=== PATIENT | female | born 1965 | race Caucasian/White ===

== ENCOUNTER 2022-08-11 08:39 | Outpatient (CLI) | payer BC, SELFPAY ==
--- NOTE | ~2022-08-11 | XR_ITS ---
EXAMINATION: XR UGIAC w barium swallow DATE: 08/11/2022 09:20 INDICATION: Dysphagia. TECHNIQUE: The patient drank thick barium, gas-producing crystals, and thin barium. Fluoroscopy of th e esophagus, stomach, and proximal small bowel was performed. Fluoroscopy exposure time was 0.4 minut es. The total number of images was 206. Total dose-area product was 1.105 Gy-cm^2. COMPARISON: None. FINDINGS: There is no mass or stricture of the esophagus. Esophageal motility is normal. There is no hiatal hernia. There was no gastroesophageal reflux with provocative maneuvers. The stomach and proxi mal small bowel show normal folding patterns. IMPRESSION: 1. Normal upper gastrointestinal series. Reviewed, dictated and finalized at location A.
[2022-08-11 10:30] LABS: Basophils Absolute Auto 0.1 K/mm3 (0.0-0.1); Basophils Percent Auto 1.3 % (0.2-1.2); Eosinophils Absolute Auto 0.1 K/mm3 (0-0.3); Hematocrit 42.1 % (37.0-47.0); Hemoglobin 14.1 g/dL (12.0-15.0); Immature Granulocyte Absolute 0.02 K/mm3 (0.00-0.031); Immature Granulocyte Percent A 0.3 % (0-0.5); Lymphocytes Absolute Auto 1.73 K/mm3 (0.9-3.2); Lymphocytes Percent Auto 27.8 % (18.3-44.2); Mean Corpuscular HGB Conc 33.5 g/dl (32-36); Mean Corpuscular Hemoglobin 28.3 pg (26-34); Mean Corpuscular Volume 84.4 fl (80-100); Mean Platelet Volume 10.2 fl (7.4-10.4); Monocytes Absolute Auto 0.4 K/mm3 (0.1-0.6); Monocytes Percent Auto 5.6 % (2.6-8.5); Platelet Count Result 263 k/mm3 (150-375); Red Blood Count 4.99 M/mm3 (4.2-5.4); Red Cell Distribution Width 12.9 % (11.5-14.5); White Blood Count 6.2 K/mm3 (4.5-10.0)
[2022-08-11 10:50] LABS: Alanine Aminotransferase 37 U/L (6-35); Albumin Level 4.6 g/dL (3.5-5.1); Alkaline Phosphatase 95 U/L (38-126); Anion Gap 4 mmol/L (8-16); Aspartate Amino Transferase 35 U/L (14-36); Bilirubin,Total 0.5 mg/dL (0.2-1.3); Blood Urea Nitrogen 15 mg/dL (7-17); CRP 0.9 mg/dL (<1.0); Calcium 9.7 mg/dL (8.4-10.2); Carbon Dioxide 37 mmol/L (22-30); Chloride 99 mmol/L (98-107); Cholesterol 240 mg/dL (0-200); Estimated Glomerular Filt Rate > 60; Glucose 109 mg/dL (65-110); HDL Direct 54 mg/dL; Potassium 3.4 mmol/L (3.4-5.0); Sodium 140 mmol/L (137-145); Triglycerides 163 mg/dL (<150)
[2022-08-11 10:59] LABS: LDL Cholesterol Direct 143 mg/dL
[2022-08-11 11:03] LABS: Erythrocyte Sedimentation Rate 16 mm/hr (0-20)
[2022-08-11 11:18] LABS: Thyroid Stimulating Hormone 0.856 uIU/mL (0.465-4.680)
[2022-08-11 11:23] LABS: Rheumatoid Factor 59.2 IU/ML (<12)
[2022-08-11 11:38] LABS: Free T4 Free Thyroxine 1.04 ng/mL (0.78-2.19)
[2022-08-16 06:40] LABS: Lyme Disease Ab (IgM), Blot Negative (Negative); Lyme Disease Ab(IgG), Blot Negative (Negative)
[2022-08-16 12:23] LABS: Cyclic Citrullinated Peptide <16 Units (<20)
== END 2022-08-11 08:40 | disposition home or self-care (01) ==
PROVIDERS: PCP Family Medicine; Visit Provider Physician Assistant
DX: R13.10 Dysphagia, unspecified (principal); E78.5 Hyperlipidemia, unspecified; R53.83 Other fatigue; E55.9 Vitamin D deficiency, unspecified; I10 Essential (primary) hypertension; G89.29 Other chronic pain
CPT/HCPCS: 36415; 74246; 80053; 80061; 82306; 84439; 84443; 85025; 85652; 86038; 86140; 86430; 86617

== ENCOUNTER 2023-10-03 08:36 | Outpatient (CLI) | payer BC, SELFPAY ==
--- NOTE | ~2023-10-03 | XR_ITS ---
3 VIEWS LUMBAR SPINE Ordering provider: Angle Perez, PAC History: . M54.50 - Low back pain, unspecified . Comparison: None. FINDINGS: VERTEBRAL BODIES: No visible fracture or subluxation. DISK SPACES: Narrowing of the disc L2-L3 and L4-L5. SOFT TISSUES: Normal. IMPRESSION: No acute osseous abnormality lumbar spine. Degenerative disc disease at multiple levels. Reviewed, dictated and finalized at location A.
--- NOTE | ~2023-10-03 | XR_ITS ---
XR hand LT 2V Ordering provider: NONSTAFF PHYSICIAN NOT ON STAFF History: . MULTIPLE JOINT PAIN . Comparison: None. FINDINGS: BONES: No acute fracture or dislocation. JOINT SPACES: Well maintained. SOFT TISSUES: Unremarkable. IMPRESSION: No acute osseous abnormality left hand. Reviewed, dictated and finalized at location A.
--- NOTE | ~2023-10-03 | XR_ITS ---
XR sacroiliac joints min 3V Ordering provider: NONSTAFF PHYSICIAN NOT ON STAFF History: . MULTIPLE JOINT PAIN . Comparison: None. FINDINGS: BONES: No acute fracture or dislocation. JOINTS: The bilateral sacroiliac joint spaces appear well maintained. No bony fusion of the sacroilia c joints or bony erosions. SOFT TISSUES: Unremarkable. Pubic symphysitis. Degenerative disc disease in the lower lumbar area. IMPRESSION: NO ACUTE OSSEOUS ABNORMALITY. NORMAL SACROILIAC JOINTS. Reviewed, dictated and finalized at location A.
--- NOTE | ~2023-10-03 | XR_ITS ---
XR shoulder RT min 2V 10/03/2023 09:12 Indication: Right shoulder pain Procedure: 4 views right shoulder Comparison: No prior studies for comparison. Findings: There is osteoarthritis of the acromioclavicular joint with small loose body superior to th e joint space. No fracture or traumatic malalignment. There is anatomic alignment. Impression: 1: Mild osteoarthritis of the right acromioclavicular joint. Reviewed, dictated and finalized at location B. Impression: 1: Mild osteoarthritis of the right acromioclavicular joint.
--- NOTE | ~2023-10-03 | XR_ITS ---
XR hand RT 2V Ordering provider: NONSTAFF PHYSICIAN NOT ON STAFF History: . MULTIPLE JOINT PAIN . Comparison: None. FINDINGS: BONES: No acute fracture or dislocation. JOINT SPACES: Normal. SOFT TISSUES: Normal. IMPRESSION: No acute osseous abnormality right hand. Reviewed, dictated and finalized at location A.
--- NOTE | ~2023-10-03 | XR_ITS ---
XR hip BI wo pelvis Ordering provider: NONSTAFF PHYSICIAN NOT ON STAFF History: . MULTIPLE JOINT PAIN . Comparison: None. FINDINGS: BONES: No acute fracture or dislocation. HIP JOINT SPACES: Normal. SACROILIAC JOINT SPACES: The sacroiliac joint spaces are normal. spine. PUBIC SYMPHYSIS: Normal. SOFT TISSUES: Normal. IMPRESSION: No acute osseous abnormality of the bilateral hips and pelvis. Reviewed, dictated and finalized at location A.
== END 2023-10-03 08:37 | disposition home or self-care (01) ==
PROVIDERS: PCP Family Medicine; Visit Provider Physician Assistant
DX: M25.511 Pain in right shoulder (principal); M54.50 Low back pain, unspecified; M25.50 Pain in unspecified joint; M51.36 Other intervertebral disc degeneration, lumbar region; M16.11 Unilateral primary osteoarthritis, right hip
CPT/HCPCS: 72110; 72202; 73030; 73120; 73521

== ENCOUNTER 2023-10-07 08:09 | Outpatient (CLI) | payer BC, SELFPAY ==
--- NOTE | ~2023-10-07 | US_ITS ---
EXAMINATION: US right upper quadrant DATE: 10/07/2023 08:54 INDICATION: Unspecified abdominal pain. TECHNIQUE: Multiple grayscale and Doppler ultrasound images of the abdomen were obtained. COMPARISON: None FINDINGS: The visualized portions of the head, body, and tail of the pancreas are normal. The liver i s normal without focal lesion. No liver surface nodularity. There is normal flow in main portal vein. The gallbladder is normal in size. No gallstones or gallbladder wall thickening. There is no sonogra phic Hernandez's sign. The common duct is normal and measures 6 mm. IMPRESSION: 1. Normal right upper quadrant ultrasound. Reviewed, dictated and finalized at location A.
== END 2023-10-07 08:10 ==
LOC: MICIMG 08:10
PROVIDERS: PCP Family Medicine; Visit Provider Physician Assistant
DX: R10.9 Unspecified abdominal pain (principal)
CPT/HCPCS: 76705

== ENCOUNTER 2023-12-14 00:48 | Day surgery (SDC) | payer BC, SELFPAY ==
[2023-11-30 10:33] VITALS: BMI 32.0
[2023-12-14 07:21] VITALS: BP 120/86; PULSE 96; RESP 18; TEMP 36.3; O2SAT 100; BMI 32.5
--- NOTE | 2023-12-14 07:29 | WPDANESEPPF ---
Anes - Initial Pre Proc Eval Procedure: Operation Date: 12/14/23 08:30 Proposed Procedures p Esophagogastroduodenoscopy & Colonoscopy - Jose Miguel Pat MD Date/Time: 12/14/23 07:29 Surgeon: Jose Miguel Pat MD Pre Op Diagnosis: Dysphagia, Personal hx. colon polyps Patient Data Age: 58 Gender: F Height: 1.65 m Weight: 88.9 kg Last Vital Signs Temp 36.3 C L 12/14/23 07:21 Pulse 96 12/14/23 07:21 Resp 18 12/14/23 07:21 BP 120/86 12/14/23 07:21 Pulse Ox 100 12/14/23 07:21 O2 Del Method Room Air 12/14/23 07:21 Allergies Allergy/AdvReac Type Severity Reaction Status Date / Time NKDA Allergy Mild Other Uncoded 12/14/23 07:16 Home Medications Medication Instructions Recorded Confirmed Type fluorometholone 0.1 % eye 1 drp LEFT EYE ONCE PRN eye 07/22/22 12/14/23 History drops,suspension swelling Saccharomyces boulardii 250 mg 250 mg PO DAILY #30 caps 07/26/22 12/14/23 Rx capsule (Daily Probiotic (S. boulardii)) apple cider vinegar 300 mg tablet 300 mg PO DAILY #30 tabs 07/26/22 12/14/23 Rx aspirin 81 mg tablet,delayed 81 mg PO DAILY #30 tabs 07/26/22 12/14/23 Rx release cinnamon bark 500 mg capsule 500 mg PO DAILY #30 caps 07/26/22 12/14/23 Rx (Cinnamon) fexofenadine 180 mg tablet 180 mg PO DAILY #30 tabs 07/26/22 12/14/23 Rx garlic 100 mg tablet 100 mg PO DAILY #30 tabs 07/26/22 12/14/23 Rx dayana (Zingiber officinalis) 500 500 mg PO DAILY #30 caps 07/26/22 12/14/23 Rx mg capsule multivitamin, stress formula 1 tablet PO .twice daily #60 tabs 07/26/22 12/14/23 Rx (Stress Formula tablet) omega-3 417 mg-dha 120 mg-epa-276 1 cap PO .twice daily #60 caps 07/26/22 12/14/23 Rx mg-fish oil 600 mg-turmeric capsule vitamin D3 250 mcg (10,000 1 cap PO DAILY #30 caps 07/26/22 12/14/23 Rx unit)-vitamin K2 45 mcg capsule albuterol sulfate 90 mcg/actuation 1 inh inhalation Q4H PRN shortness 12/27/22 12/14/23 Rx aerosol inhaler of breath or wheezing #6.7 grams JESSICA 100 mg-theanine 100 1 cap PO DAILY #30 caps 09/05/23 12/14/23 Rx mg-ashwagandha extract 225 mg capsule (JESSICA Soothe) glucosamine sulfate 500 mg tablet 500 mg PO DAILY 09/05/23 12/14/23 History (Glucosamine) turmeric root extract 500 mg 500 mg PO BID 09/29/23 12/14/23 History capsule chlorthalidone 25 mg tablet See Rx Instructions .Route 10/02/23 12/14/23 Rx .COMPLEX #90 tabs clonazepam 0.5 mg tablet 0.5 mg PO BID PRN Anxiety 11/30/23 12/14/23 History Patient hx anesthesia problems: none Family hx anesthesia problems: none Results Review: All pre-operative results and documents have been reviewed as part of the pre-operative evaluation. [facility] Past Medical History Medical History Anxiety Asthma Chronic pain History of breast cancer Hypertension Obesity Other fatigue Surgical History Surgical History History of D&C 01/02/2015 History of lumpectomy of right breast 05/2010 History of total abdominal hysterectomy and bilateral salpingo-oophorectomy 12/23/2016 Social History Social History Smoking status: Never smoker Alcohol intake: never Substance use: never Substance use type: does not use Do You Feel Safe in your Home?: Yes Lack of Transportation: No Lack of Food: Never True Current Housing: I Have Housing Concerned About Future Housing: No Difficulty Paying Gas/Electric Bills: No Difficulty Paying for Meds: No Currently Unemployed: No Education: High School Diploma/GED Difficulty w/ Childcare or Family Care: No Living arrangements: alone Occupation/Education: occupation Gender identity (if verbalized by the patient): Female Sexual Orientation (if Verbalized by the Patient): Straight or Heterosexual Spiritual care concerns: No Kaiden Cristobal
[2023-12-14] MEDS: LACTATED RINGERS 1,000 ML 150 ML IV CONT (07:31)
--- NOTE | 2023-12-14 08:20 | PM.HPGS ---
History of Present Illness History of Present Illness Consent: Risks, benefits, and alternatives have been discussed and questions answered. Patient agrees to proceed with procedure. Chief complaint: Dysphagia, Personal hx. colon polyps Narrative: Terry Chang is a 58 year old female with dysphagia- h/o esophageal ring dilated in the past, had colon polyp in 2017 Review of Systems Review of Systems: All systems reviewed & are unremarkable except as noted in HPI and below PMFSH Past Medical History Medical History Anxiety Asthma Chronic pain History of breast cancer Hypertension Obesity Other fatigue Surgical History Surgical History History of D&C 01/02/2015 History of lumpectomy of right breast 05/2010 History of total abdominal hysterectomy and bilateral salpingo-oophorectomy 12/23/2016 Social History Social History Smoking status: Never smoker Alcohol intake: never Substance use: never Substance use type: does not use Do You Feel Safe in your Home?: Yes Lack of Transportation: No Lack of Food: Never True Current Housing: I Have Housing Concerned About Future Housing: No Difficulty Paying Gas/Electric Bills: No Difficulty Paying for Meds: No Currently Unemployed: No Education: High School Diploma/GED Difficulty w/ Childcare or Family Care: No Living arrangements: alone Occupation/Education: occupation Gender identity (if verbalized by the patient): Female Sexual Orientation (if Verbalized by the Patient): Straight or Heterosexual Spiritual care concerns: No Meds Home Medications and Allergies Home Medications Medication Instructions Recorded Confirmed Type fluorometholone 0.1 % eye 1 drp LEFT EYE ONCE PRN eye 07/22/22 12/14/23 History drops,suspension swelling Saccharomyces boulardii 250 mg 250 mg PO DAILY #30 caps 07/26/22 12/14/23 Rx capsule (Daily Probiotic (S. boulardii)) apple cider vinegar 300 mg tablet 300 mg PO DAILY #30 tabs 07/26/22 12/14/23 Rx aspirin 81 mg tablet,delayed 81 mg PO DAILY #30 tabs 07/26/22 12/14/23 Rx release cinnamon bark 500 mg capsule 500 mg PO DAILY #30 caps 07/26/22 12/14/23 Rx (Cinnamon) fexofenadine 180 mg tablet 180 mg PO DAILY #30 tabs 07/26/22 12/14/23 Rx garlic 100 mg tablet 100 mg PO DAILY #30 tabs 07/26/22 12/14/23 Rx dayana (Zingiber officinalis) 500 500 mg PO DAILY #30 caps 07/26/22 12/14/23 Rx mg capsule multivitamin, stress formula 1 tablet PO .twice daily #60 tabs 07/26/22 12/14/23 Rx (Stress Formula tablet) omega-3 417 mg-dha 120 mg-epa-276 1 cap PO .twice daily #60 caps 07/26/22 12/14/23 Rx mg-fish oil 600 mg-turmeric capsule vitamin D3 250 mcg (10,000 1 cap PO DAILY #30 caps 07/26/22 12/14/23 Rx unit)-vitamin K2 45 mcg capsule albuterol sulfate 90 mcg/actuation 1 inh inhalation Q4H PRN shortness 12/27/22 12/14/23 Rx aerosol inhaler of breath or wheezing #6.7 grams JESSICA 100 mg-theanine 100 1 cap PO DAILY #30 caps 09/05/23 12/14/23 Rx mg-ashwagandha extract 225 mg capsule (JESSICA Soothe) glucosamine sulfate 500 mg tablet 500 mg PO DAILY 09/05/23 12/14/23 History (Glucosamine) turmeric root extract 500 mg 500 mg PO BID 09/29/23 12/14/23 History capsule chlorthalidone 25 mg tablet See Rx Instructions .Route 10/02/23 12/14/23 Rx .COMPLEX #90 tabs clonazepam 0.5 mg tablet 0.5 mg PO BID PRN Anxiety 11/30/23 12/14/23 History Allergies Allergy/AdvReac Type Severity Reaction Status Date / Time NKDA Allergy Mild Other Uncoded 12/14/23 07:16 Vital Signs Vital Signs - 24 hr 12/14/23 07:21 Temperature 97.3 F L Pulse Rate 96 Respiratory Rate 18 Blood Pressure 120/86 Pulse Oximetry 100 Oxygen Delivery Room Air Exam Const: General: comfortable and no acute distress HENMT: Face/Nose/Sinus:
--- NOTE | 2023-12-14 08:44 | SUR.OPER ---
egd ended at 836, colonoscopy begun at 841
[2023-12-14 08:57] VITALS: BP 101/71; PULSE 86; RESP 18; O2SAT 100
[2023-12-14 09:07] VITALS: BP 116/65; PULSE 83; RESP 18; O2SAT 100
[2023-12-14 09:17] VITALS: BP 148/81; PULSE 79; RESP 22; O2SAT 99
== END 2023-12-14 09:38 | disposition home or self-care (01) ==
PROVIDERS: PCP Family Medicine; Referring Provider Nurse Practitioner; Visit Provider Internal Medicine Gastroenterology
PROC: 0DJ08ZZ Inspection of Upper Intestinal Tract, Via Natural or Artificial Opening Endoscopic (ICD-10-PCS; CPT 43235; principal; 2023-12-14 08:30)
DX: Z12.11 Encounter for screening for malignant neoplasm of colon (principal); K63.5 Polyp of colon; K22.2 Esophageal obstruction; K21.00 Gastro-esophageal reflux disease with esophagitis, without bleeding; K44.9 Diaphragmatic hernia without obstruction or gangrene; I10 Essential (primary) hypertension; J45.909 Unspecified asthma, uncomplicated; Z85.3 Personal history of malignant neoplasm of breast; E66.9 Obesity, unspecified; Z68.32 Body mass index [BMI] 32.0-32.9, adult; Z79.82 Long term (current) use of aspirin; Z79.51 Long term (current) use of inhaled steroids
CPT/HCPCS: 45380; 43249; 88305; C1726; J2003; J2704; J7120

== ENCOUNTER 2024-03-26 09:30 | Outpatient (CLI) | payer BC, SELFPAY ==
--- NOTE | ~2024-03-26 | MR_ITS ---
EXAMINATION: MR hip LT wo con DATE: 03/26/2024 10:28 INDICATION: Left hip pain TECHNIQUE: Magnetic resonance imaging (MRI) of the left hip was performed without intravenous contra st. Sequences included full-field axial PD-weighted FS FSE and T1-weighted FSE, coronal of the pelvis with PD-weighted FS FSE, small field of view of the left hip with axial PD-weighted FS FSE, sagitta l PD-weighted FS FSE and coronal PD weighted FS FSE. Additional radial T1-weighted FGR oriented ortho gonal to the acetabular rim were obtained for evaluation of the labrum. COMPARISON: None FINDINGS: Bones/labrum/cartilage: Mild lumbar dextrocurvature with moderate spondylosis. Alignment is otherwise normal. No fracture, a vascular necrosis or pathologic marrow replacing process. Mild left hip osteoarthritis with mild part ial-thickness cartilage loss with smooth chondral surface at the posterior aspect the joint space. Li indu degeneration of the anterosuperior left acetabular labrum which appears small with amorphous inc reased signal. Fluid: Symmetric physiologic amount of fluid within both hip joints. Soft tissues: Normal and symmetric muscle bulk and signal in the pelvis and visualized proximal thighs. There is bi lateral mild diffuse medius and trochanteric bursitis. Mild tendinopathy without discrete tear at the bilateral gluteus medias and minimus tendons. The iliopsoas and proximal hamstring tendons are juan l. The uterus is not identified and has likely been surgically resected. Limited evaluation of vis ceral organs of the pelvis is otherwise unremarkable. No pathologically enlarged pelvic/inguinal lym phadenopathy. IMPRESSION: 1. Mild left hip osteoarthritis with degeneration of the anterosuperior left acetabular labrum. 2. Relatively symmetric mild bilateral trochanteric and gluteus medius medius bursitis and mild tendi nopathy without tear of the bilateral gluteus medius medius and minimus tendons. 2. Mild lumbar dextrocurvature with moderate spondylosis. Reviewed, dictated and finalized at location A. [employer] ATTEND[employer] IMPRESSION: 1. Mild left hip osteoarthritis with degeneration of the anterosuperior left ac etabular labrum. 2. Relatively symmetric mild bilateral trochanteric and gluteus medius medius b ursitis and mild tendinopathy without tear of the bilateral gluteus medius medi us and minimus tendons. 2. Mild lumbar dextrocurvature with moderate spondylosis.
--- OUTSIDE RECORDS SUMMARY | 2024-03-26 10:01 | XMS_ITS | Patient Health Record ---
Author Organization [facility] Address [address] [place] [address] Care Team Providers Care Pasteurizing Machine Operator Name Role Phone Santiago Bell MD Primary Care Provider Unavailab Jason Cota Unavailable [phone] Rohan Hui MD Unavailable Unavailable Reason For Referral No Information Medications Medication SIG (Take, Route, Frequency, Duration) Notes Start Date End Date Status Glucosamine Active Garlic Active Multivitamin Active ProAir HFA Active Fluorometholone Not- Taking oxyCODONE-Acetaminophen Not-Taking oxyCODONE HCl Not-Ta destini Tamoxifen Citrate No t-Taking tylenol Active Madelin Active Milk Thistle Active Social History Tobacco Use: Social History Observation Description Date Details (start date - stop date) Never Smoker NA - NA Tobacco Use/Smoking Question Answer Notes Are you a nonsmoker Problems Problem Type SNOMED Code ICD Code Onset Dates Problem Status W/U Status Risk Notes Problem 10116540 Benign neoplasm of ascending colon (D12.2) Active confirmed Problem 444919176 Reflux esophagitis (K21.0) Active confirmed Problem 977474056 Colon cancer screening (Z12.11) Active confirmed Problem 414790957 Schatzki's ring (K22.2) Active confirmed Problem 66136209 Esophageal dysphagia (R13.10) Active confirmed Problem 669476636 Reflux esophagitis (K21.00) Active confirmed Plan Of Treatment No Information Insurance Providers Payer Name Payer Address Payer Phone Subscriber Number Group Number Insured Name Patient Relationship to Insured Coverage Start Date Coverage End Date Blue Access PPO [id number] [address] [place] [address] [id number] Terry Chang Self - patient is the insured Medical (General) History Medical History History ICD Code Right Breast CA 2010 Asthma Surgical History Surgery Date(Month/Year) Right particial masectomy 2010 Hysterectomy 11/2016
--- OUTSIDE RECORDS SUMMARY | 2024-03-26 10:01 | XMS_ITS | Clinical Summary ---
Author Organization [facility] Address [address] [place] [address] Phone Care Team Providers Care Pipe Maker Name Role Phone Santiago Bell MD Primary Care Provider Allergies No known active allergies Medications MULTIVITAMINS WITH FLUORIDE (MULTI-VITAMIN ORAL) Active Nutritional Supplements Oral Misc Take by mouth. Activ e CALCIUM CARB/VIT D3/MINERALS (CALCIUM-VITAMI N D ORAL) Take by mouth. Activ e PROAIR HFA 90 mcg/actuation inhaler 5 Active FEXOFENADINE HCL (MIRIAM ORAL) Take by mouth. Activ e aspirin (ECOTRIN EC) 81 mg Tablet, Delayed Release (E.C.) Take 81 mg by mouth daily. Active OTHERIndication s:Tummeric Tummeric . Active clonazePAM (KlonoPIN) 0.5 mg Tablet TAKE ONE-HALF TABLET BY MOUTH TWO TIMES A DAY 0 7 Active fluorometholone (FML) 0.1 % suspension INSTILL 1 DROP INTO LEFT EYE 3 TIMES A DAY 3 7 Active GLUCOSAMINE HCL (GLUCOSAMINE, BULK, MISC) by Misc.(Non-Drug; Combo Route) route. Active OTHER Tart da silva juice for inflammation . Active OTHERIndication s:Cinnamon 2 times daily Provider please include Medication name, dose, route and frequency . Active MILK THISTLE ORAL Take by mouth. Activ e chlorthalidone (HYGROTON) 25 mg tablet Take 25 mg by mouth daily. 2 Active Active Problems Problem Noted Date Diagnosed Date Complex atypical endometrial hyperplasia 017 Uterine hemorrhage 12/23/2016 Acute blood loss anemia 12/23/2016 Anxiety state 12/23/2016 01/02/15 Hysteroscopy, Polypectomy w/ Myosure, D& C 01/02/2015 Encounters Date Type Department Care Team Description 03/20/2024 External Device Data [facility] Provider, Abstract 03/20/2024 External Device Data [facility] Provider, Abstract 03/05/2024 External Device Data [facility] Provider, Abstract 12/27/2023 External Device Data [facility] Provider, Abstract from Last 3 Months Family History Medical History Relation Name Comments Hypertension Father Colon Cancer Maternal Aunt great aunt Heart Disease Maternal Grandmother Breast Cancer Mother Hypertension Mother Kidney Disease Mother Lymphoma Mother Breast Cancer Paternal Aunt great aunt Cancer Paternal Grandfather Relation Name Status Comments Father Maternal Aunt great aunt Alive Maternal Grandmother Mother Paternal Aunt great aunt Alive Paternal Grandfather Social History Tobacco Use Types Packs/Day Years Used Date Smoking Tobacco: Never Smokeless Tobacco: Never Tobacco Cessation:Counseling Given: Not Answered Alcohol Use Standard Drinks/Week Comments No 0 (1 standard drink = 0.6 oz pur e alcohol) Comments No Sex and Gender Information Value Date Recorded Sex Assigned at Not on file Legal Sex 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 Gender Identity Not on file Sexual Orientation Not on file 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 Not on file Not on file Last Filed Vital Signs Vital Sign Reading Time Taken Comments Blood Pressure 110/72 11/07/2023 10:40 AM CDT Pulse 99 12/24/2016 7:09 AM CDT Temperature 36.4 ??C (97.6 ??F) 12/24/2016 7:09 AM CD T Respiratory Rate 20 12/24/2016 7:09 AM CDT Oxygen Saturation 99% 12/24/2016 7:09 AM CDT Inhaled Oxygen Concentration - - Weight 91.2 kg (201 lb) 11/07/2023 10:40 AM CDT Height 162.6 cm (5' 4 ) 11/07/2023 10:40 AM CDT Body Mass Index 34.5 11/07/2023 10:40 AM CDT Plan of Treatment Health Maintenance Due Date Last Done Comments Pre-Diabetes and Diabetes Screening 1965 DTAP/TDAP/TD VACCINES (1 - Tdap) 07/19/1982 FIT-DNA Q 3 years 07/19/2008 FIT/FOBT Q 1 year 07/19/2008 Flex Sig/CT Colonography Q 5 years 07/19/2008 ZOSTER VACCINE (1 of 2) 07/19/2013 INFLUENZA VACCINE (#1) 2023 BREAST CANCER SCREENING 08/09/2024 08/10/19 24, 08/09/2023, 04/29/2021, Additional history exists COLORECTAL SCREENING 12/28/2026 12/28/2016 (Previously completed) Colorectal Cancer Screening 12/28/2026 RSV VACCINE (60+ or ) (1 - 1-dose 75+ series) 07/19/2038 HEPATITIS B VACCINES Aged Out No long er eligible based on patient's age to complete this topic PNEUMOCOCCAL VACCINE 0-64 YEARS Aged Out No longer eligible based on patient's age to complete this topic Procedures Procedure Name Priority Date/Time Associated Diagnosis Comments MAMMO SCREENING BILAT Routine 08/10/2023 2:30 PM CDT from Last 3 Months or Most Recently Relevant to Health Maintenance Results * MAMMO SCREENING BILAT (08/10/2023 2:30 PM CDT) Anatomical Region Laterality Modality Breast Bilateral Other Rohan Crain MD MAMMO ORDERABLES Final Result from Last 3 Months or Most Recently Relevant to Health Maintenance Insurance [phone] (Work) [address] [place], [place] [id number] [place] [address] BLUE ACCESS/TRUE BLUE PPO [phone] (Work) [address] [place] [address] RX [facility] [employer] Advance Directives For more information, please contact: [phone] * Full Code (Latest Code Status on File) Date Activated Date Inactivated Comments 12/13/2016 9:46 AM 12/13/2016 6:17 PM * Full Code Date Activated Date Inactivated Comments 12/13/2016 5:47 AM 12/13/2016 9:45 AM * Full Code Date Activated Date Inactivated Comments 01/02/2015 8:11 AM 01/02/2015 12:12 PM * Full Code Date Activated Date Inactivated Comments 01/02/2015 7:08 AM 01/02/2015 8:11 AM * Full Code Date Activated Date Inactivated Comments 01/02/2015 6:16 AM 01/02/2015 7:08 AM Care Teams Pipe Maker Relationship Specialty Start Date End Date Santiago Bell MD [address] [place] [address] PCP - General Family Practice 06/14/16
--- OUTSIDE RECORDS SUMMARY | 2024-03-26 10:01 | XMS_ITS | Continuity of Care Document ---
Author Organization [facility] Address [address] [place] [address] Phone Care Team Providers Care Weave Defect Charting Clerk Name Role Phone Unavailable Unavailable Unavailable Advance Directives Directive Yes / No Effective Date File Name No Information Encounters Encounter Description Practice Location Reason(s) For Visit Diagnoses Date Provider Providers Copied on Encounter [facility], [address] [facility] [place], [place], [id number], tel:[phone] [facility] No Information 7 No Information Referring Provider: ANDREINA Waterman, [address] [facility] [address], [place], [address]. tel:[phone] Family History Family Member Type Diagnosis Age At Onset No Information Payers Payer name Insurance type Covered constitution party ID Authoralfred yañez(s) [facility] PPO [id number] Social History Type Description Quantity Date Captured Comments Sex Female Smoking Status No Information Chief Complaint And Reason For Visit No Information History Of Present Illness Encounter Date Complaint History Of Prese nt Illness No Information Instructions Date Instruction Additional Infor mation No Information Assessments Type Assessment Date No Information
--- OUTSIDE RECORDS SUMMARY | 2024-03-26 10:01 | XMS_ITS | Clinical Summary ---
Author Organization [facility] Address [address] [address] Phone Care Team Providers Care Placer Miner Name Role Phone Angle Perez Primary Care Provider [phone] Social History Tobacco Use Types Packs/Day Years Used Date Smoking Tobacco: Never Assessed Comments Unknown Sex and Gender Information Value Date Recorded Sex Assigned at Not on file Legal Sex Female 10:33 PM CDT Gender Identity Not on file Sexual Orientation Not on file Plan of Treatment Health Maintenance Due Date Last Done Comments Hepatitis C Virus (HCV) Screening 1965 TdaP Immunization 1965 Pap Smear 07/19/1984 Cervical Cancer Screening (CCS) 07/19/1993 HPV/Cotest 07/19/1993 Colonoscopy 07/19/2008 Colorectal Cancer Screening 07/19/2008 Cologuard 07/19/2013 Immunochemical Fecal Occult Blood 07/19/2013 Mammogram 07/19/2013 Pneumococcal Immunization (5 0+ years) (1 of 1 - PCV) 07/19/2013 Zoster Immunization (1 of 2) 07/19/2013 Influenza Immunization (#1) 2023 SARS-COV-2 Immunization ( - 2023- season) 2023 Respiratory Syncytial Virus (RSV) Immunization (Adult) (1 - 1-dose 75+ series) 07/19/2038 Hepatitis B Immunization Aged Out No longer eligible based on patient's age to complete this topic Meningococcal Immunization (ACWY) Aged Out No longer eligible based on patient's age to complete this topic Pneumococcal Immunization Combined Aged Out No longer eligible based on patient's age to complete this topic Rotavirus Immunization Aged Out No lo nger eligible based on patient's age to complete this topic Insurance [facility] Care Teams Placer Miner Relationship Specialty Start Date End Date Angle Perez PA [address] [place] [address] PCP - General Physician Shipping Weigher 09/26/16
== END 2024-03-26 09:31 | disposition home or self-care (01) ==
PROVIDERS: PCP Family Medicine
DX: M16.12 Unilateral primary osteoarthritis, left hip (principal); M70.62 Trochanteric bursitis, left hip; M70.61 Trochanteric bursitis, right hip; M76.02 Gluteal tendinitis, left hip; M76.01 Gluteal tendinitis, right hip; M43.8X6 Other specified deforming dorsopathies, lumbar region; M43.06 Spondylolysis, lumbar region
CPT/HCPCS: 73721